=== PATIENT | male | born 2000 | race African-American/Black ===

== ENCOUNTER 2020-07-13 12:43 | Emergency (ER) | payer OTHER, SELFPAY ==
[2020-07-13 12:56] VITALS: BP 113/84; PULSE 59; RESP 16; TEMP 36.6; O2SAT 100
--- NOTE | 2020-07-13 13:31 | ED.LOWEXIN ---
HPI - Extremity Injury (Lower) General Chief Complaint: Extremity Injury, Lower Stated Complaint: Knee Pain Time Seen by Provider: 07/13/20 13:06 Source: patient and RN notes reviewed Mode of arrival: ambulatory Limitations: no limitations History of Present Illness HPI Narrative: Patient presents today complaining of a 2.5-week history of right knee pain. Denies any specific injury or trauma. 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 He saw his PCP 5 days ago and was told he had a knee strain. Following his office visit, he did go to several martial arts classes that evening. States the pain is intermittent and only occurs with weightbearing. 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 He has tried to take ibuprofen without relief. He is requesting a note for work for the next couple of days. He has been wearing a knee brace, but states it is not helping. MD complaint: other (Right knee pain) Related Data Home Medications Medication Instructions Recorded Confirmed albuterol sulfate 1 inh INHALATION QID 07/13/20 07/13/20 Allergies Allergy/AdvReac Type Severity Reaction Status Date / Time No Known Allergies Allergy Verified 07/13/20 12:59 Review of Systems Review of Systems: Narrative: CONSTITUTIONAL: Denies body aches, fever, chills, or sweats. EYES: Denies visual changes, redness, or discharge. ENT: Denies rhinorrhea, congestion, sore throat, or otalgia. CARDIOVASCULAR: Denies chest pain, palpitations, or edema. RESPIRATORY: Denies cough or dyspnea. GASTROINTESTINAL: Denies abdominal pain, nausea, vomiting, or diarrhea. GENITOURINARY: Denies dysuria or hematuria. SKIN: Denies rash, itching, or wounds. MUSCULOSKELETAL: Denies back pain, or myalgia. + Right knee pain NEUROLOGIC: Denies headache, numbness, tingling, or weakness. PSYCH: Denies depression or anxiety. [facility] Social History Social History Gender identity (if verbalized by the patient): Male Comments At time of signature, I have reviewed and agree with nursing past medical, surgical, social and family history unless otherwise noted. Please see nursing chart for further information. There is no relevant family history pertinent to the presenting complaint Exam Narrative: Exam Narrative: GENERAL: Well-appearing, well-nourished, and in no acute distress. HEAD: Normocephalic, atraumatic. EYES: EOMI. No redness or drainage. Conjunctivae normal. ENT: Mucous membranes pink and moist. NECK: Normal AROM. CHEST: No respiratory distress. EXTREMITIES: Right knee: AROM and PROM without increased pain. Patient localizes pain in the medial joint line. Knee is nontender to palpation throughout. No edema noted. No ecchymosis, erythema, abrasions, wounds. No abnormal movement of the patella. No crepitus noted. No tenderness of the patellar tendon. Distal sensation intact. Capillary refill normal. Pedal pulse normal. Gait normal. SKIN: Warm, dry, no rash. Capillary refill normal. Normal skin turgor. NEURO: No focal deficits. Alert and oriented x3. PSYCH: Normal affect. No signs of depression or anxiety. Course Vital Signs Vital signs: Vital Signs Temperature 97.8 F 07/13/20 12:56 Pulse Rate 59 L 07/13/20 12:56 Respiratory Rate 16 07/13/20 12:56 Blood Pressure 113/84 07/13/20 12:56 Pulse Oximetry 100 07/13/20 12:56 Temperature 97.8 F 07/13/20 12:56 Pulse Rate 59 L 07/13/20 12:56 Respiratory Rate 16 07/13/20 12:56 Blood Pressure 113/84 07/13/20 12:56 Pulse Oximetry 100 07/13/20 12:56 Reviewed. Pt has been instructed to follow up with his PCP regarding his elevated blood pressure today. MDM - Extremity Injury (Lower) MDM Narrative Medical decision making narrative: Patient called [facility] earlier this morning and discussed his knee pain with me over the nanci
== END 2020-07-13 13:35 | disposition home or self-care (01) ==
PROVIDERS: Emergency Provider Nurse Practitioner
DX: M25.561 Pain in right knee (principal); J45.909 Unspecified asthma, uncomplicated
CPT/HCPCS: 99202; 99212; G0463